=== PATIENT | male | born 2000 | race African-American/Black ===

== ENCOUNTER 2022-06-21 10:34 | Emergency (ER) | payer SELFPAY ==
--- NOTE | 2022-06-21 12:05 | ER ---
Nurse's Notes [facility] Name: Joe Hernandez Age: 22 yrs Sex: Male : 2000 Arrival Date: 06/21/2022 Time: 10:36 Bed 12 Private MD: Diagnosis: Otitis media, unspecified, right ear Presentation: 06/21 11:07 Chief complaint: Patient states: nausea, right ear pain X 2 days. Coronavirus screen: iw Client presents with at least one sign or symptom that may indicate coronavirus-19. Ebola Screen: Patient negative for fever greater than or equal to 101.5 degrees Fahrenheit, and additional compatible Ebola Virus Disease symptoms Patient denies exposure to infectious person. Patient denies travel to an Ebola-affected area in the 21 days before illness onset. No symptoms or risks identified at this time. Initial Sepsis Screen: Does the patient meet any 2 criteria? No. Patient's initial sepsis screen is negative. Does the patient have a suspected source of infection? No. Patient's initial sepsis screen is negative. Risk Assessment: Do you want to hurt yourself or someone else? Patient reports no desire to harm self or others. Onset of symptoms was June 21, 2022. 11:07 Method Of Arrival: Ambulatory iw 11:07 Acuity: SHELLI 4 iw Historical: - Allergies: 11:08 No Known Allergies; iw - Home Meds: 11:08 None [Active]; iw - PMHx: 11:08 None; iw - Immunization history:: Adult Immunizations up to date. - Family history:: not pertinent. - Social history:: Smoking status: unknown. - Hospitalizations: : No recent hospitalization is reported. Screenin:00 Abuse screen: Denies threats or abuse. Denies injuries from another. Nutritional eh3 screening: No deficits noted. Tuberculosis screening: No symptoms or risk factors identified. Fall Risk None identified. Assessment: 12:00 General: Appears in no apparent distress. uncomfortable, Behavior is calm, cooperative, eh3 appropriate for age. Pain: Complains of pain in right ear. Neuro: Level of Consciousness is awake, alert, obeys commands, Oriented to person, place, time, situation. Cardiovascular: Capillary refill < 3 seconds Patient's skin is warm and dry. Respiratory: Airway is patent Respiratory effort is even, unlabored. GI: No signs and/or symptoms were reported involving the gastrointestinal system. : No signs and/or symptoms were reported regarding the genitourinary system. EENT: Reports pain in right ear. Derm: No deficits noted. Musculoskeletal: Circulation, motion, and sensation intact. Range of motion: intact in all extremities. Vital Signs: 11:07 BP 117 / 50; Pulse 98; Resp 16; Temp 97.5; Pulse Ox 100% ; Weight 77.11 kg; Height 6 iw ft. 0 in. (182.88 cm); 11:07 Body Mass Index 23.06 (77.11 kg, 182.88 cm) iw ED Course: 10:36 Patient arrived in ED. mr 10:39 Mina Rubalcava MD is Attending Physician. rn 11:07 Cristel Pineda RN is Primary Nurse. iw 11:08 Triage completed. iw 11:08 Arm band placed on. iw 11:08 Patient has correct armband on for positive identification. Bed in low position. Call eh3 light in reach. Side rails up X2. Pulse ox on. 12:19 No provider procedures requiring assistance completed. Patient did not have IV access eh3 during this emergency room visit. Administered Medications: No medications were administered Medication: 12:22 VIS not applicable for this client. eh3 Outcome: 12:05 Discharge ordered by . rn 12:19 Discharged to home ambulatory. eh3 12:19 Condition: stable 12:19 Discharge instructions given to patient, Instructed on discharge instructions, follow up and referral plans. medication usage, Demonstrated understanding of instructions, follow-up care, medications, Prescriptions given X 1. 12:28 Patient left the ED. eh3 Signatures: Chloé Enamorado Irene, RN RN Mina Rubalcava MD MD rn Hall, Erin, RN RN 3
--- NOTE | 2022-06-21 12:05 | EDPHYS ---
Physician Documentation [facility] Name: Joe Hernandez Age: 22 yrs Sex: Male : 2000 Arrival Date: 06/21/2022 Time: 10:36 Bed 12 Private MD: ED Physician Mina Rubalcava HPI: 06/21 11:22 This 22 yrs old Black Male presents to ER via Ambulatory with complaints of Ear Pain, rn Nausea. 11:22 The patient presents with pain, that is acute. The complaints affect the right ear. rn Onset: The symptoms/episode began/occurred 2 day(s) ago. Modifying factors: The symptoms are alleviated by nothing, the symptoms are aggravated by nothing. Associated signs and symptoms: Pertinent positives: fever, sore throat, Pertinent negatives: cough, shortness of breath, vomiting. Severity of symptoms: At their worst the symptoms were mild in the emergency department the symptoms are unchanged. The patient has not experienced similar symptoms in the past. The patient has not recently seen a physician. Historical: - Allergies: 11:08 No Known Allergies; iw - Home Meds: 11:08 None [Active]; iw - PMHx: 11:08 None; iw - Immunization history:: Adult Immunizations up to date. - Family history:: not pertinent. - Social history:: Smoking status: unknown. - Hospitalizations: : No recent hospitalization is reported. ROS: 11:22 Constitutional: + fever Eyes: Negative for injury, pain, redness, and discharge, ENT: + rn sore throat and right ear pain Neck: Negative for injury, pain, and swelling, Cardiovascular: Negative for chest pain, palpitations, and edema, Respiratory: Negative for shortness of breath, cough, wheezing, and pleuritic chest pain, Abdomen/GI: Negative for abdominal pain, vomiting, diarrhea, and constipation, Back: Negative for injury and pain, MS/Extremity: Negative for injury and deformity, Skin: Negative for injury, rash, and discoloration, Neuro: Negative for headache, weakness, numbness, tingling, and seizure. Exam: 11:22 Constitutional: This is a well developed, well nourished patient who is awake, alert, rn and in no acute distress. Head/Face: Normocephalic, atraumatic. Eyes: Periorbital areas with no swelling, redness, or edema. ENT: + mild right ear erythema, + mild pharyngeal earythema, no stridor, no exudate Cardiovascular: Regular rate and rhythm. No pulse deficits. Respiratory: No increased work of breathing, no retractions or nasal flaring. Abdomen/GI: Soft, non-tender Skin: Warm, dry MS/ Extremity: Pulses equal, no cyanosis. Neuro: Awake and alert, GCS 15 Vital Signs: 11:07 BP 117 / 50; Pulse 98; Resp 16; Temp 97.5; Pulse Ox 100% ; Weight 77.11 kg; Height 6 iw ft. 0 in. (182.88 cm); 11:07 Body Mass Index 23.06 (77.11 kg, 182.88 cm) iw MDM: 10:39 Patient medically screened. rn 12:04 Differential diagnosis: otitis media, otitis externa, acute otalgia. Data reviewed: rn vital signs, nurses notes, lab test result(s), and as a result, I will discharge patient. Counseling: I had a detailed discussion with the patient and/or guardian regarding: the historical points, exam findings, and any diagnostic results supporting the discharge/admit diagnosis, lab results, the need for outpatient follow up, to return to the emergency department if symptoms worsen or persist or if there are any questions or concerns that arise at home. Special discussion: I discussed with the patient/guardian in detail that at this point there is no indication for admission to the hospital. It is understood, however, that if the symptoms persist or worsen the patient needs to return immediately for re-evaluation. 06/21 10:52 Order name: Flu; Complete Time: 12: rn 06/21 10:52 Order name: Strep; Complete Time: 12:04 rn 06/21 10:52 Order name: SARS-COV-2 RT PCR (Document "Date of Onset" if Symptomatic); Complete Time: rn 12:06/21 11:43 Order name: Throat Culture EDMS Administered Medications: No medications were administered Disposition Summary: 06/21/22 12:05 Discharge Ordered Location: Home rn Problem: new rn Symptoms: have improved rn Condition: Stable rn Diagnosis - Otitis media, unspecified, right ear rn Followup: rn - With: Private Physician - When: As needed - Reason: Recheck today's complaints, Re-evaluation by your physician Discharge Instructions: - Discharge Summary Sheet rn - Otitis Media, Adult rn - Form - Return To Work 3 - Form - Excuse from Work, School, or Physical Activity 3 Forms: - Medication Reconciliation Form rn - Thank You Letter rn - Antibiotic internal revenue service agent - Prescription Opioid Use rn Prescriptions: - Augmentin 875-125 mg Oral Tablet - take 1 tablet by ORAL route every 12 hours for 10 days; 20 tablet; Refills: 0, rn Product Selection Permitted Signatures: Dispatcher [employer] Cristel Saldaña RN RN iw Nieto, Roman, MD MD rn Hall, Erin, RN RN [email or web address]
[2022-06-21 12:46] VITALS: BP 117/50; TEMP 97.5; O2SAT 100
== END 2022-06-21 12:28 | disposition home or self-care (01) ==
LOC: ER 10:34
DX: H66.91 Otitis media, unspecified, right ear (principal); Z20.822 Contact with and (suspected) exposure to COVID-19
CPT/HCPCS: 87070; 87081; 87804; 99283; U0003